=== PATIENT | male | born 1985 | race American Indian/Alaskan Native ===

== ENCOUNTER 2018-09-27 12:56 | Emergency (ER) | payer SELFPAY ==
[2018-09-27] MEDS ORDERED: Sodium Chloride 0.9% 1,000 ML IV ONE (13:15)
[2018-09-27] MEDS ORDERED: fentaNYL 100 MCG/2 ML SDV IVPUSH ONE (13:15)
[2018-09-27 14:26] LABS: CHLORIDE,CL 101 mmol/L (98-107); SODIUM,NA 136 mmol/L (136-148)
--- NOTE | 2018-09-27 14:28 | EDM.PDOC ---
ED HPI GENERAL MEDICAL PROBLEM - General Chief Complaint: ENT Problem Stated Complaint: THROAT INFLAMED Time Seen by Provider: 09/27/18 13:04 Source of Information: Reports: Patient History Limitations: Reports: Other (Hot potato voice) THROAT Pain Score (Numeric/FACES): 7 - Related Data Allergies Allergy/AdvReac Type Severity Reaction Status Date / Time Penicillins Allergy Anaphylactic Verified 09/27/18 13:07 Shock Home Meds: Home Meds . [No Known Home Meds] 09/27/18 [History] Past Medical History - Past Health History Medical/Surgical History: Denies Medical/Surgical History - Infectious Disease History Infectious Disease History: Reports: Chicken Pox Social & Family History - Family History Family Medical History: Noncontributory - Tobacco Use Smoking Status *Q: Current Every Day Smoker Years of Tobacco use: 5 Packs/Tins Daily: 0.5 - Recreational Drug Use Recreational Drug Use: No ED ROS ENT - Review of Systems Review Of Systems: ROS reveals no pertinent complaints other than HPI. ED EXAM, ENT - Physical Exam Exam: See Below Exam Limited By: No Limitations General Appearance: Alert, Mild Distress (Due to throat pain and fullness) Ears: Normal External Exam, Normal TMs Nose: Normal Inspection Mouth/Throat: Normal Inspection, Normal Oropharynx, Normal Teeth, Peritonsillar Mass (Right with uveal deviation to the left), Pharyngeal Erythema, Throat Pain , Throat Swelling, Tonsillar Erythema, Tonsillar Swelling Head: Atraumatic, Normocephalic Neck: Normal Inspection Respiratory/Chest: No Respiratory Distress, Lungs Clear, Normal Breath Sounds Cardiovascular: Normal Peripheral Pulses, Regular Rate, Rhythm, No Murmur GI/Abdominal: Soft Neurological: Alert, Oriented, Normal Cognition Psychiatric: Normal Affect, Normal Mood Skin: Warm, Dry, Intact, Normal Color, No Rash Lymphatic: No Adenopathy Course - Vital Signs Last Recorded V/S: Last Vital Signs Temp 36.9 C 09/27/18 13:05 Pulse 111 H 09/27/18 13:05 Resp 20 09/27/18 13:05 BP 164/63 H 09/27/18 13:05 Pulse Ox 96 09/27/18 13:05 - Orders/Labs/Meds Orders: Active Orders 24 hr Category Date Time Status CULTURE STREP A CONFIRMATION [RM] Stat Lab 09/27/18 13:54 Results STREP SCRN A RAPID W CULT CONF [RM] Stat Lab 09/27/18 13:14 Ordered Clindamycin Phosphate in D5W [Cleocin in D5W] 900 mg Med 09/27/18 16:25 Ordered Premix Bag 1 bag IV ONETIME cefTRIAXone [Rocephin in Dextrose,Iso-Osm 1 GM/50 ML] 1 Med 09/27/18 16:24 Ordered gm Premix Bag 1 bag IV ONETIME Medication Orders Ceftriaxone Sodium/Dextrose 1 (gm/ Premix) 50 mls @ 100 mls/hr IV ONETIME ONE Stop: 09/27/18 16:53 Last Admin: 09/27/18 16:38 Dose: 100 mls/hr Clindamycin Phosphate 900 mg/ (Premix) 50 mls @ 100 mls/hr IV ONETIME ONE Stop: 09/27/18 16:54 Labs: Laboratory Tests 09/27/18 09/27/18 Range/Units 13:54 13:54 WBC 21.99 H (4.0-11.0) K/uL RBC 4.91 (4.50-5.90) M/uL Hgb 15.7 (13.0-17.0) g/dL Hct 45.2 (38.0-50.0) % MCV 92.1 (80.0-98.0) fL MCH 32.0 (27.0-32.0) pg MCHC 34.7 (31.0-37.0) g/dL RDW Std Deviation 42.9 (28.0-62.0) fl RDW Coeff of Amilcar 13 (11.0-15.0) % Plt Count 299 (150-400) K/uL MPV 9.90 (7.40-12.00) fL Neut % (Auto) 82.0 H (48.0-80.0) % Lymph % (Auto) 6.8 L (16.0-40.0) % [place] % (Auto) 11.0 (0.0-15.0) % Eos % (Auto) 0.1 (0.0-7.0) % Baso % (Auto) 0.1 (0.0-1.5) % Neut # (Auto) 18.0 H (1.4-5.7) K/uL Lymph # (Auto) 1.5 (0.6-2.4) K/uL [place] # (Auto) 2.4 H (0.0-0.8) K/uL Eos # (Auto) 0.0 (0.0-0.7) K/uL Baso # (Auto) 0.0 (0.0-0.1) K/uL Nucleated RBC % 0.0 /100WBC Nucleated RBCs # 0 K/uL Sodium 136 (136-148) mmol/L Potassium 3.7 (3.5-5.1) mmol/L Chloride 101 (98-107) mmol/L Carbon Dioxide 25.5 (21.0-32.0) mmol/L BUN 8 (7.0-18.0) mg/dL Creatinine 0.9 (0.8-1.3) mg/dL Est Cr Clr Drug Dosing 138.60 mL/min Estimated GFR (MDRD) > 60.0 ml/min Glucose 122 H (74-106) mg/dL Calcium 9.2 (8.5-10.1) mg/dL Total Bilirubin 1.9 H (0.2-1.0) mg/dL AST 13 L (15-37) IU/L ALT 19 (14-63) IU/L Alkaline Phosphatase 97 (46-116) U/L Total Protein 7.7 (6.4-8.2) g/dL Albumin 3.7 (3.4-5.0) g/dL Globulin 4.0 (2.6-4.0) g/dL Albumin/Globulin Ratio 0.9 (0.9-1.6) Meds: Medications Generic Name Dose Route Start Last Admin Trade Name Freq PRN Reason Stop Dose Admin Ceftriaxone Sodium/Dextrose 1 50 mls @ 100 mls/hr 09/27/18 16:24 09/27/18 16: 38 gm/ Premix IV 09/27/18 16:53 100 mls/hr ONETIME ONE Administration Clindamycin Phosphate 900 mg/ 50 mls @ 100 mls/hr 09/27/18 16:25 Premix IV 09/27/18 16:54 ONETIME ONE Discontinued Medications Generic Name Dose Route Start Last Admin Trade Name Freq PRN Reason Stop Dose Admin Fentanyl 50 mcg 09/27/18 13:15 09/27/18 14:02 Sublimaze IVPUSH 09/27/18 13:16 50 mcg ONETIME ONE Administration Sodium Chloride 1,000 mls @ 999 mls/hr 09/27/18 13:15 09/27/18 13:56 Normal Saline IV 09/27/18 14:15 999 mls/hr STAT ONE Administration Iopamidol 80 ml 09/27/18 16:15 09/27/18 16:16 Isovue Multipack-370 (76%) IVPUSH 09/27/18 16:16 80 ml ONETIME STA Administration Methylprednisolone Sodium Succinate 125 mg 09/27/18 15:52 09/27/18 16:12 Solu-Medrol IVPUSH 09/27/18 15:53 125 mg ONETIME ONE Administration - Re-Assessments/Exams Free Text/Narrative Re-Assessment/Exam: 09/27/18 16:[address] Baum, ENT at [facility]. Full report patient condition and CT results. Same will accept the patient in transfer. CT pushed. OK to transfer per private vehicle per Dr. Baum. Patient emphatically refuses ambulance transfer. 09/27/18 16:47 Departure - Departure Time of Disposition: 16:46 Disposition: DC/Tfer to [facility] 02 Clinical Impression: Peritonsillar abscess - Discharge Information Referrals: PCP,Unknown [Primary Care Provider] - Torin Baum MD [Ordering Only Provider] - Forms: ED Department Discharge - My Orders Last 24 Hours: My Active Orders 09/27/18 13:14 STREP SCRN A RAPID W CULT CONF [RM] Stat 09/27/18 13:54 CULTURE STREP A CONFIRMATION [RM] Stat 09/27/18 16:24 cefTRIAXone [Rocephin in Dextrose,Iso-Osm 1 GM/50 ML] 1 gm Premix Bag 1 bag IV ONETIME 09/27/18 16:25 Clindamycin Phosphate in D5W [Cleocin in D5W] 900 mg Premix Bag 1 bag IV ONETIME - Assessment/Plan Last 24 Hours: My Active Orders 09/27/18 13:14 STREP SCRN A RAPID W CULT CONF [RM] Stat 09/27/18 13:54 CULTURE STREP A CONFIRMATION [RM] Stat 09/27/18 16:24 cefTRIAXone [Rocephin in Dextrose,Iso-Osm 1 GM/50 ML] 1 gm Premix Bag 1 bag IV ONETIME 09/27/18 16:25 Clindamycin Phosphate in D5W [Cleocin in D5W] 900 mg Premix Bag 1 bag IV ONETIME
[2018-09-27] MEDS ORDERED: methylPREDNISolone Sodium Succinate 125 MG/2 ML SDV IVPUSH ONE (15:52)
[2018-09-27] MEDS ORDERED: Iopamidol 755 MG/ML 500 ML Multipack Bottle IVPUSH STA (16:15)
--- NOTE | 2018-09-27 16:16 | CT ---
INDICATION: Pain and difficulty swallowing and speaking. Evaluate for right-sided peritonsillar abscess TECHNIQUE: CT soft tissue of the neck was acquired with IV contrast. 80 cc Isovue 370 COMPARISON: None FINDINGS: Skull base: Unremarkable. Pharynx: 2.5 centimeter x 2.5 centimeter right peritonsillar abscess which encroaches on the right side of the adjacent pharynx Larynx and trachea: Unremarkable. Salivary glands: Unremarkable. Thyroid gland: Unremarkable. Vessels: Unremarkable for age. Bones: Unremarkable for age. Misc: No mass or lymphadenopathy. Lung apices: Unremarkable. IMPRESSION: 2.5 centimeter x 2.5 centimeter right peritonsillar abscess which encroaches on the right side of the pharynx. Dictated by Kai Trent MD @ 09/27/2018 4:14:01 PM Please note that all CT scans at this facility use dose modulation, iterative reconstruction, and/or weight-based dosing when appropriate to reduce radiation dose to as low as reasonably achievable. Dictated by: Kai Trent MD @ 09/27/2018 16:14:06 (Electronically Signed)
[2018-09-27] MEDS ORDERED: cefTRIAXone 1 GM in Premix Bag 1 BAG IV ONE (16:24)
[2018-09-27] MEDS ORDERED: Clindamycin Phosphate in D5W 900 MG in Premix Bag 1 BAG IV ONE ×2 (16:25)
== END 2018-09-27 17:17 ==
LOC: MW.ED 12:56
DX: J36 Peritonsillar abscess (principal); F17.210 Nicotine dependence, cigarettes, uncomplicated; Z88.0 Allergy status to penicillin
CPT/HCPCS: 36415; 70491; 80053; 85025; 87081; 87880; 96361; 96365; 96366; 96375; 99285; A4217; J0696; J2930; J3010; J3490; J7040; Q9967